=== PATIENT | male | born 1995 | race Caucasian/White ===

== ENCOUNTER 2017-10-23 12:43 | Emergency (ER) | payer OTHER ==
[2017-10-23 12:50] VITALS: BP 113/74; PULSE 101; RESP 18; TEMP 97.8
[2017-10-23 13:16] LABS: Appearance,Urine Clear (Clear); Bilirubin,Urine Negative (Negative); Blood,Urine Negative (Negative); Color,Urine Yellow; Glucose,Urine (UA) Negative (Negative); Ketones,Urine Negative (Negative); Leukocyte Esterase,Urine Negative (Negative); Nitrite,Urine Negative (Negative); Protein,Urine Trace (Negative); Specific Gravity,Urine 1.026 (1.001-1.035); Urobilinogen,Urine <2.0 mg/dL (<2.0)
[2017-10-23] MEDS ORDERED: PANTOPRAZOLE 40 MG/10 ML VIAL IVP STA (13:23)
--- NOTE | 2017-10-23 13:41 | ED ---
General Adult HPI - General Chief complaint: Abdominal Pain Stated complaint: Abd Pain Time Seen by Provider: 10/23/17 13:03 Source: patient, RN notes reviewed Mode of arrival: ambulatory Limitations: no limitations - History of Present Illness Initial comments: 22-year-old male presenting for evaluation of epigastric abdominal pain. Pain is been present for the past several weeks, worse with eating. Patient does have remote history of peptic ulcer disease. He was previously taking proton pump inhibitor, however he's been out of this medication for the past several weeks. Patient has no other chronic medical problems. No vomiting or diarrhea. No fever or chills. No chest pain or shortness of breath. - Related Data Home Medications Medication Instructions Recorded Confirmed Ranitidine HCl [Zantac] 150 mg PO DAILY PRN 10/23/17 10/23/17 Previous Rx's Medication Instructions Recorded Omeprazole [PriLOSEC] 20 mg PO AC-BID #60 cap 10/23/17 Allergies Allergy/AdvReac Type Severity Reaction Status Date / Time No Known Allergies Allergy Verified 10/23/17 12:50 Review of Systems ROS Statement: Those systems with pertinent positive or pertinent negative responses have been documented in the HPI. ROS Other: All systems not noted in ROS Statement are negative. Past Medical History Additional Past Medical History / Comment(s): ulcerative colitis History of Any Multi-Drug Resistant Organisms: None Reported Past Surgical History: No Surgical Hx Reported Past Psychological History: Bipolar, Depression, Schizophrenia Smoking Status: Current every day smoker Past Alcohol Use History: Occasional Past Drug Use History: Cocaine, Marijuana General Exam Limitations: no limitations General appearance: alert, in no apparent distress Head exam: Present: atraumatic, normocephalic Eye exam: Present: normal appearance, PERRL ENT exam: Present: normal exam Neck exam: Present: normal inspection. Absent: tenderness, meningismus Respiratory exam: Present: normal lung sounds bilaterally. Absent: respiratory distress Cardiovascular Exam: Present: regular rate, normal rhythm GI/Abdominal exam: Present: soft, tenderness (Mild epigastric tenderness). Absent: distended, guarding, rebound Extremities exam: Present: normal inspection, full ROM Back exam: Present: normal inspection, full ROM Neurological exam: Present: alert, oriented X3 Psychiatric exam: Present: normal affect, normal mood Skin exam: Present: warm, dry, intact Course Vital Signs 10/23/17 12:47 Temperature 97.8 F Pulse Rate 101 H Respiratory 18 Rate Blood Pressure 113/74 O2 Sat by Pulse 98 Oximetry Medical Decision Making - Medical Decision Making 22-year-old male presenting for epigastric pain, history of peptic ulcer disease. Patient has to leave unexpectedly, he signs out AGAINST MEDICAL ADVICE. He is prescribed proton pump inhibitor. No imaging or laboratory studies obtained. - Lab Data Lab Results 10/23/17 Range/Units 12:46 Urine Color Yellow Urine Appearance Clear (Clear) Urine pH 6.0 (5.0-8.0) Ur Specific [place] 1.026 (1.001-1.035) Urine Protein Trace H (Negative) Urine Glucose (UA) Negative (Negative) Urine Ketones Negative (Negative) Urine Blood Negative (Negative) Urine Nitrite Negative (Negative) Urine Bilirubin Negative (Negative) Urine Urobilinogen <2.0 (<2.0) mg/dL Ur Leukocyte Esterase Negative (Negative) Disposition Clinical Impression: Abdominal pain Disposition: Left Against Medical Advice Condition: Fair Prescriptions: Omeprazole [PriLOSEC] 20 mg PO AC-BID #60 cap Is patient prescribed a controlled substance at d/c from ED?: No Referrals: None,Stated [Primary Care Provider] - 1-2 days Tanner Naqiv MD [STAFF PHYSICIAN] - 1-2 days Time of Disposition: 13:40
== END 2017-10-23 13:45 | disposition left against medical advice (07) ==
LOC: EC 12:43
DX: R10.13 Epigastric pain (principal); F17.200 Nicotine dependence, unspecified, uncomplicated; Z53.29 Procedure and treatment not carried out because of patient's decision for other reasons; Z87.11 Personal history of peptic ulcer disease
CPT/HCPCS: 81003; 99283

== ENCOUNTER 2017-12-01 10:58 | Emergency (ER) | payer OTHER ==
[2017-12-01] MEDS ORDERED: SODIUM CHLORIDE 0.9% 1,000 ML IV STA (11:05)
[2017-12-01] MEDS ORDERED: PANTOPRAZOLE 40 MG/10 ML VIAL IVP STA (11:05)
[2017-12-01] MEDS ORDERED: MAG HYDROX/AL HYDROX/SIMETH 30 ML, HYOSCYAMINE ELIXIR 10 ML, CIMETIDINE HCL 300 MG PO STA ×3 (11:09)
--- NOTE | 2017-12-01 11:13 | ED ---
Abdominal Pain HPI - General Chief Complaint: Abdominal Pain Stated Complaint: abdominal pain Time Seen by Provider: 12/01/17 11:04 Source: patient, RN notes reviewed Mode of arrival: ambulatory Limitations: no limitations - History of Present Illness Initial Comments: 22-year-old male presents emergency Department chief complaint abdominal pain. Patient's been having ongoing abdominal pain last few weeks. Patient states he can't emergency department recently but states that [place] and was given a prescription for [id number] antacids. Patient states he has been taking them almost every day. Patient states that he has dark stools. Patient complains of epigastric pain. Patient states that he has been diagnosed with peptic ulcer disease and ulcerative colitis. Patient states she' s never had an EGD or colonoscopy. Patient states that he has cut out some fluids out of his diet but has not helped. He denies any excessive caffeine intake. Patient denies any chest pain, shortness breath, headache, dizziness, fever or chills. - Related Data Home Medications Medication Instructions Recorded Confirmed Ranitidine HCl [Zantac] 150 mg PO DAILY PRN 10/23/17 10/23/17 Previous Rx's Medication Instructions Recorded Omeprazole [PriLOSEC] 20 mg PO AC-BID #60 cap 10/23/17 Dicyclomine [Bentyl] 20 mg PO TID #30 tablet 12/01/17 Pantoprazole [Protonix] 40 mg PO DAILY #30 tablet. 12/01/17 Sucralfate [Carafate] 1 gm PO BID #30 tablet 12/01/17 Allergies Allergy/AdvReac Type Severity Reaction Status Date / Time No Known Allergies Allergy Verified 12/01/17 11:03 Review of Systems ROS Statement: Those systems with pertinent positive or pertinent negative responses have been documented in the HPI. ROS Other: All systems not noted in ROS Statement are negative. Past Medical History Additional Past Medical History / Comment(s): ulcerative colitis History of Any Multi-Drug Resistant Organisms: None Reported Past Surgical History: No Surgical Hx Reported Past Psychological History: Bipolar, Depression, Schizophrenia Smoking Status: Current every day smoker Past Alcohol Use History: Occasional Past Drug Use History: Cocaine, Marijuana General Exam Limitations: no limitations General appearance: alert, in no apparent distress Head exam: Present: atraumatic, normocephalic, normal inspection Eye exam: Present: normal appearance, PERRL, EOMI. Absent: scleral icterus, conjunctival injection, periorbital swelling ENT exam: Present: normal oropharynx, mucous membranes moist, TM's normal bilaterally, normal external ear exam Neck exam: Present: normal inspection, full ROM. Absent: tenderness, meningismus, lymphadenopathy Respiratory exam: Present: normal lung sounds bilaterally. Absent: respiratory distress, wheezes, rales, rhonchi, stridor Cardiovascular Exam: Present: regular rate, normal rhythm, normal heart sounds. Absent: systolic murmur, diastolic murmur, rubs, gallop, clicks GI/Abdominal exam: Present: soft, tenderness (Mild epigastric and upper abdominal tenderness), normal bowel sounds. Absent: distended, guarding, rebound, rigid Back exam: Absent: CVA tenderness (R), CVA tenderness (L) Psychiatric exam: Present: normal affect, normal mood Skin exam: Present: warm, dry, intact, normal color. Absent: rash Course Vital Signs 12/01/17 11:02 Temperature 98.1 F Pulse Rate 74 Respiratory 16 Rate Blood Pressure 135/71 O2 Sat by Pulse 99 Oximetry Medical Decision Making - Medical Decision Making 22-year-old male presented for ongoing abdominal pain, cramping. Patient has normal abnormal CT CT only showed possible evidence of mesenteric adenitis. Patient has no right lower quadrant tenderness to sports acute appendicitis. Patient will be started on Protonix, Carafate and Bentyl. Patient will be advised to follow-up with on-call for EGD and colonoscopy. Patient has normal hemoglobin and is stable for discharge. - Lab Data Result diagrams: 12/01/17 11:15 12/01/17 11:15 Lab Results 12/01/17 12/01/17 12/01/17 Range/Units 11:15 11:15 11:22 WBC 6.6 (3.8-10.6) k/uL RBC 5.13 (4.30-5.90) m/uL Hgb 15.6 (13.0-17.5) gm/dL Hct 45.0 (39.0-53.0) % MCV 87.7 (80.0-100.0) fL MCH 30.4 (25.0-35.0) pg MCHC 34.6 (31.0-37.0) g/dL RDW 12.3 (11.5-15.5) % Plt Count 190 (150-450) k/uL Neutrophils % 56 % Lymphocytes % 33 % Monocytes % 6 % Eosinophils % 2 % Basophils % 1 % Neutrophils # 3.7 (1.3-7.7) k/uL Lymphocytes # 2.2 (1.0-4.8) k/uL Monocytes # 0.4 (0-1.0) k/uL Eosinophils # 0.2 (0-0.7) k/uL Basophils # 0.0 (0-0.2) k/uL Sodium 140 (137-145) mmol/L Potassium 4.2 (3.5-5.1) mmol/L Chloride 109 H (98-107) mmol/L Carbon Dioxide 20 L (22-30) mmol/L Anion Gap 11 mmol/L BUN 19 (9-20) mg/dL Creatinine 0.80 (0.66-1.25) mg/dL Est GFR (CKD-EPI)AfAm >90 (>60 ml/min/1.73 sqM) Est GFR (CKD-EPI)NonAf >90 (>60 ml/min/1.73 sqM) Glucose 86 (74-99) mg/dL Calcium 9.6 (8.4-10.2) mg/dL Total Bilirubin 1.2 (0.2-1.3) mg/dL AST 27 (17-59) U/L ALT 32 (21-72) U/L Alkaline Phosphatase 71 (38-126) U/L C-Reactive Protein 6.4 (<10.0) mg/L Total Protein 7.7 (6.3-8.2) g/dL Albumin 4.7 (3.5-5.0) g/dL Amylase 69 (30-110) U/L Lipase 104 (23-300) U/L Urine Color Yellow Urine Appearance Clear (Clear) Urine pH 5.5 (5.0-8.0) Ur Specific [place] 1.028 (1.001-1.035) Urine Protein Trace H (Negative) Urine Glucose (UA) Negative (Negative) Urine Ketones Trace H (Negative) Urine Blood Negative (Negative) Urine Nitrite Negative (Negative) Urine Bilirubin Negative (Negative) Urine Urobilinogen <2.0 (<2.0) mg/dL Ur Leukocyte Esterase Negative (Negative) Disposition Clinical Impression: Abdominal pain, Peptic ulcer disease Disposition: HOME SELF-CARE Condition: Stable Instructions: Abdominal Pain (ED), Peptic Ulcer (ED) Additional Instructions: Please return to the Emergency Department if symptoms worsen or any other concerns. Prescriptions: Dicyclomine [Bentyl] 20 mg PO TID #30 tablet Pantoprazole [Protonix] 40 mg PO DAILY #30 tablet. Sucralfate [Carafate] 1 gm PO BID #30 tablet Is patient prescribed a controlled substance at d/c from ED?: No Referrals: Corwin Martinez MD [STAFF PHYSICIAN] - 1-2 days Time of Disposition: 12:01
[2017-12-01 11:30] LABS: Appearance,Urine Clear (Clear); Bilirubin,Urine Negative (Negative); Blood,Urine Negative (Negative); Color,Urine Yellow; Glucose,Urine (UA) Negative (Negative); Ketones,Urine Trace (Negative); Leukocyte Esterase,Urine Negative (Negative); Nitrite,Urine Negative (Negative); PH, Urine 5.5 (5.0-8.0); Protein,Urine Trace (Negative); Specific Gravity,Urine 1.028 (1.001-1.035); Urobilinogen,Urine <2.0 mg/dL (<2.0)
[2017-12-01 11:31] LABS: Basophils % (A) 1 %; Eosinophils # (A) 0.2 k/uL (0-0.7); Eosinophils % (A) 2 %; HGB 15.6 gm/dL (13.0-17.5); Lymphocytes # (A) 2.2 k/uL (1.0-4.8); Lymphocytes % (A) 33 %; MCH 30.4 pg (25.0-35.0); MCHC 34.6 g/dL (31.0-37.0); MCV 87.7 fL (80.0-100.0); Mean Platelet Volume 7.1; Monocytes # (A) 0.4 k/uL (0-1.0); Monocytes % (A) 6 %; Neutrophils # (A) 3.7 k/uL (1.3-7.7); Neutrophils % (A) 56 %; Platelet Count 190 k/uL (150-450); RBC 5.13 m/uL (4.30-5.90); RDW 12.3 % (11.5-15.5); WBC 6.6 k/uL (3.8-10.6)
[2017-12-01 11:49] LABS: ALT 32 U/L (21-72); AST 27 U/L (17-59); Albumin 4.7 g/dL (3.5-5.0); Alkaline Phosphatase 71 U/L (38-126); Amylase 69 U/L (30-110); Anion Gap 11 mmol/L; Blood Urea Nitrogen 19 mg/dL (9-20); C Reactive Protein 6.4 mg/L (<10.0); Calcium 9.6 mg/dL (8.4-10.2); Carbon Dioxide 20 mmol/L (22-30); Chloride 109 mmol/L (98-107); Glucose 86 mg/dL (74-99); Lipase 104 U/L (23-300); Potassium 4.2 mmol/L (3.5-5.1); Sodium 140 mmol/L (137-145); Total Bilirubin 1.2 mg/dL (0.2-1.3); Total Protein 7.7 g/dL (6.3-8.2)
--- NOTE | 2017-12-01 11:52 | CT ---
EXAMINATION TYPE: CT abdomen pelvis w con DATE OF EXAM: 12/01/2017 REFERENCE: NONE HISTORY: Pain HISTORY: abdominal pain CT DLP: 567 mGy Automated exposure control for dose reduction was used. TECHNIQUE: Helical acquisition through the abdomen and pelvis was obtained following the oral ingesti on of without Oral Contrast and following intravenous administration of 100mL mL of Isovue 300. The d zac was reformatted in axial, coronal and sagittal projections. FINDINGS: Visualized portions of the lungs are clear. There is no pleural or pericardial fluid. The heart is not enlarged. Within the abdomen, the liver, spleen and gallbladder are normal. Both adrenal glands are normal. Both kidneys demonstrate function and appear morphologically normal. The pancreas is unremarkable. There is no significant retroperitoneal, iliac or inguinal adenopathy. The bladder is not distended. There is no significant diverticular change and there is no radiographic evidence of diverticulitis. The appendix is not visualized with certainty. There is some right lower quadrant adenopathy which is nonspecific. I could not exclude some mesenter ic adenitis. Small bowel loops are of normal caliber. There is no free fluid and no free air. No bony lesion is seen. IMPRESSION: 1. NONVISUALIZATION OF THE APPENDIX. 2. FINDINGS SUGGESTIVE OF MESENTERIC ADENITIS. PLEASE CORRELATE CLINICALLY.
[2017-12-01 12:28] VITALS: BP 133/64; PULSE 71; RESP 17; TEMP 98.6
== END 2017-12-01 12:28 | disposition home or self-care (01) ==
LOC: EC 10:58
DX: K27.9 Peptic ulcer, site unspecified, unspecified as acute or chronic, without hemorrhage or perforation (principal); F17.200 Nicotine dependence, unspecified, uncomplicated
CPT/HCPCS: 99284; 36415; 80053; 82150; 83690; 85025; 86140; 81003; 74177; 96374; 96361; C9113

== ENCOUNTER 2017-12-25 12:27 | Emergency (ER) | payer OTHER ==
[2017-12-25 13:11] VITALS: BP 117/60; PULSE 69; RESP 20; TEMP 98.3
--- NOTE | 2017-12-25 13:22 | ED ---
Recheck HPI - General Chief Complaint: Recheck/Abnormal Lab/Rx Stated Complaint: Fever, Poss Hand, Foot, & Mouth Time Seen by Provider: 12/25/17 13:13 Source: patient, RN notes reviewed, old records reviewed Mode of arrival: ambulatory Limitations: no limitations - History of Present Illness Initial Comments: Patient is a 22-year-old male presents emergency Department stay with chief complaint of rash over his hands feet and mouth. Patient reports that his daughter was diagnosed with vduw-vjou-ucj-mouth disease 2 days ago. He reports a low-grade temperature yesterday. He states that he's had small blisterlike lesions over his mouth in the corner of his lip. Patient states he has a few lesions on his right hand and couple on his foot bottom and his buttocks. Patient reports that he needs a note for work to take care of his child as well as a take care of himself until he is not contagious. - Related Data Previous Rx's Medication Instructions Recorded Omeprazole [PriLOSEC] 20 mg PO AC-BID #60 cap 10/23/17 Allergies Allergy/AdvReac Type Severity Reaction Status Date / Time No Known Allergies Allergy Verified 12/25/17 13:43 Review of Systems ROS Statement: Those systems with pertinent positive or pertinent negative responses have been documented in the HPI. ROS Other: All systems not noted in ROS Statement are negative. Past Medical History Additional Past Medical History / Comment(s): ulcerative colitis History of Any Multi-Drug Resistant Organisms: None Reported Past Surgical History: No Surgical Hx Reported Past Psychological History: Bipolar, Depression, Schizophrenia Smoking Status: Current every day smoker Past Alcohol Use History: Occasional Past Drug Use History: Cocaine, Marijuana General Exam - General Exam Comments Initial Comments: Well-appearing 22-year-old male. No acute distress. Limitations: no limitations General appearance: alert, in no apparent distress Head exam: Present: atraumatic, normocephalic, normal inspection Eye exam: Present: normal appearance, PERRL, EOMI. Absent: scleral icterus, conjunctival injection, periorbital swelling ENT exam: Present: normal exam, mucous membranes moist, other (Sporadic 2-3 mm blisters over the oral mucosa and outside of his right cheek. He has a similar blister like lesion over his right hands and feet.) Neck exam: Present: normal inspection. Absent: tenderness, meningismus, lymphadenopathy Respiratory exam: Present: normal lung sounds bilaterally. Absent: respiratory distress, wheezes, rales, rhonchi, stridor Cardiovascular Exam: Present: regular rate, normal rhythm, normal heart sounds. Absent: systolic murmur, diastolic murmur, rubs, gallop, clicks GI/Abdominal exam: Present: soft, normal bowel sounds. Absent: distended, tenderness, guarding, rebound, rigid Back exam: Present: normal inspection Neurological exam: Present: alert, oriented X3, CN II-XII intact Psychiatric exam: Present: normal affect, normal mood Skin exam: Present: warm, dry, intact, normal color. Absent: rash Course Vital Signs 12/25/17 13:08 Temperature 98.3 F Pulse Rate 69 Respiratory 20 Rate Blood Pressure 117/60 O2 Sat by Pulse 99 Oximetry Medical Decision Making - Medical Decision Making This is a 22-year-old male presents emergency Department chief fevers, blisterlike lesions over his hands, feet and mouth. His daughter was diagnosed with gpos-hacg-xxl-mouth virus. He reports he did have some fevers yesterday and was given Motrin Tylenol. Patient reports he needs a work note until he is not contagious. Patient has multiple sporadic blisterlike lesions or the oromucosa. Discussed the importance of remaining hydrated this is a viral illness. Discussed that it will be self-limiting. Patient is given a note for work for the next few days. Discussed alternating Motrin Tylenol. Discussed he can also expect to have significant joint pains. Patient states that she will comply. Return parameters were discussed. Disposition Clinical Impression: Hand, foot and mouth disease Disposition: HOME SELF-CARE Condition: Good Instructions: Viral [place]hem (ED) Additional Instructions: Patient advised to ensure having Motrin Tylenol for fevers and pain. Drink Plenty of fluids. Return to the emergency department if any alarming signs or symptoms occur. Is patient prescribed a controlled substance at d/c from ED?: No Referrals: None,Stated [Primary Care Provider] - 1-2 days
== END 2017-12-25 13:40 | disposition home or self-care (01) ==
LOC: EC 12:27
DX: B08.4 Enteroviral vesicular stomatitis with exanthem (principal); F17.200 Nicotine dependence, unspecified, uncomplicated
CPT/HCPCS: 99283

== ENCOUNTER 2018-01-10 13:00 | Emergency (ER) | payer OTHER ==
--- NOTE | 2018-01-10 13:43 | ED ---
ENT HPI - General Chief complaint: ENT Stated complaint: Sore throat Time Seen by Provider: 01/10/18 13:13 Source: patient Mode of arrival: ambulatory Limitations: no limitations - History of Present Illness Initial comments: 22-year-old male with PMH of UC who presents today for chief complaint of sore throat x1 day. Pt states that he woke up this morning with sore throat and body aches, he states he looked in the mirror an noticed redness of the throat and uvula. Pt Denies any swelling of the neck, difficulty breathing or swallowing. Pt states that he did have chills, but did not take his temperature. Pt was concerned about strep throat and presented to the emergency department for evaluation. Patient denies any recent fever, shortness of breath, chest pain, back pain, abdominal pain, nausea or vomiting, numbness or tingling, dysuria or hematuria, constipation or diarrhea, headaches or visual changes, or any other complaints. - Related Data Previous Rx's Medication Instructions Recorded Omeprazole [PriLOSEC] 20 mg PO AC-BID #60 cap 10/23/17 Allergies Allergy/AdvReac Type Severity Reaction Status Date / Time No Known Allergies Allergy Verified 01/10/18 13:14 Review of Systems ROS Statement: Those systems with pertinent positive or pertinent negative responses have been documented in the HPI. ROS Other: All systems not noted in ROS Statement are negative. Constitutional: Reports: chills. Denies: fever, night sweats ENT: Reports: throat pain Cardiovascular: Denies: chest pain Endocrine: Denies: as per HPI Gastrointestinal: Denies: abdominal pain, nausea, vomiting, diarrhea, constipation Genitourinary: Denies: urgency, dysuria Musculoskeletal: Denies: back pain, joint swelling Skin: Denies: rash, lesions Neurological: Denies: headache, weakness, numbness, paresthesias, confusion Past Medical History Additional Past Medical History / Comment(s): ulcerative colitis History of Any Multi-Drug Resistant Organisms: None Reported Past Surgical History: No Surgical Hx Reported Past Psychological History: Bipolar, Depression, Schizophrenia Smoking Status: Current every day smoker Past Alcohol Use History: Occasional Past Drug Use History: Cocaine, Marijuana General Exam - General Exam Comments Initial Comments: General: The patient is awake and alert, in no distress, and does not appear acutely ill. No signs of respiratory distress, drooling or stridor. Pt appears well, nontoxic. Eye: Pupils are equal, round and reactive to light, extra-ocular movements are intact. No nystagmus. There is normal conjunctiva bilaterally. No signs of icterus. Ears, nose, mouth and throat: There are moist mucous membranes and no oral lesions. Oropharyngx is erythematous, there is mild equal bilateral tonsillar enlargement, no tonsilar exudates. Uvula is mildly erythematous and swollen but mild, raising with phonation. Neck: The neck is supple, there is no tenderness or JVD. No anterior cervical lymphadenopathy. Cardiovascular: There is a regular rate and rhythm. No murmur, rub or gallop is appreciated. Respiratory: Lungs are clear to auscultation, respirations are non-labored, breath sounds are equal. No wheezes, stridor, rales, or rhonchi. Gastrointestinal: Soft, non-distended, non-tender abdomen without masses or organomegaly noted. There is no rebound or guarding present. No CVA tenderness. Bowel sounds are unremarkable. No splenomegaly. Musculoskeletal: Normal ROM, no tenderness. Strength 5/5. Sensation intact. Radial pulses equal bilaterally 2+. Neurological: A&O x 3. CN II-XII intact, There are no obvious motor or sensory deficits. Coordination appears grossly intact. Speech is normal. Skin: Skin is warm and dry and no rashes or lesions are noted. Psychiatric: Cooperative, appropriate mood & affect, normal judgment. Limitations: no limitations Course Vital Signs 01/10/18 01/10/18 13:12 14:35 Temperature 98.4 F 97.8 F Pulse Rate 98 78 Respiratory 18 16 Rate Blood Pressure 131/76 129/70 O2 Sat by Pulse 99 98 Oximetry Medical Decision Making - Medical Decision Making 22 y with cc of sore throat. Afebrile upon arrival. PE revealed signs concerning pharyngitis with uvulitis. No evidence of paratonsillar abscess. Pt appeared well no signs of respiratory distress. No hx or findings concerning for anaphylaxis as cause of uvulitis. Rapid strep (-). Pt given 2mg decadron. Given PE findings with (-) strep testing I feel this is most likely viral pharngitis with uvulitis. Symptomatic care was discussed with pt as well as f/u within 1-2 day> Pt agreed with plan. Case discussed in detail with Dr. Ragsdale who agreed with impression and plan. Return parameters were discussed in detail patient, and pt d/c in stable condition. - Lab Data Lab Results 01/10/18 Range/Units 13:24 Group A Strep Rapid Negative (Negative) Disposition Clinical Impression: Pharyngitis, Uvulitis Disposition: HOME SELF-CARE Condition: Good Instructions: Pharyngitis (ED) Is patient prescribed a controlled substance at d/c from ED?: No Referrals: None,Stated [Primary Care Provider] - 1-2 days [facility] Romaine larsen [NON-STAFF] - 1-2 days Time of Disposition: 14:25
[2018-01-10] MEDS ORDERED: DEXAMETHASONE 4 MG TAB PO STA (13:44)
[2018-01-10 14:36] VITALS: BP 129/70; PULSE 78; RESP 16; TEMP 97.8
== END 2018-01-10 14:35 | disposition home or self-care (01) ==
LOC: EC 13:00
DX: J02.9 Acute pharyngitis, unspecified (principal); K12.2 Cellulitis and abscess of mouth; F17.200 Nicotine dependence, unspecified, uncomplicated
CPT/HCPCS: 87081; 87430; 99283; J8540

== ENCOUNTER 2019-12-22 16:35 | Emergency (ER) | payer OTHER ==
[2019-12-22 16:39] VITALS: RESP 18; TEMP 98.5
--- NOTE | 2019-12-22 16:48 | ED ---
GI Bleed HPI - General Chief complaint: GI Bleed Stated complaint: GI bleed Time Seen by Provider: 12/22/19 16:40 Source: patient Mode of arrival: ambulatory Limitations: no limitations - History of Present Illness Initial comments: Patient is a 24-year-old male presenting to emergency Department with chief complaint of blood in the stool. Patient reports he said similar episodes to this for the past 8 years. Patient states the physicians were suspecting ulcerative colitis to be the cause of his symptoms and he was advised to follow- up with a GI specialist to obtain upper and lower GI scope and he never did. Patient states she was too afraid of the diagnosis. Patient states his previous rectal bleeds were secondary to alcohol abuse. States he has not been draining for the past one year because he was in assisted. She reports most recent episode started yesterday with bright red bleeding. States he does have loose stool but not profuse diarrhea. Denies any urinary symptoms. Denies nausea or vomiting but does report lower abdominal pain most localized to the left lower quadrant region. - Related Data Previous Rx's Medication Instructions Recorded Omeprazole [PriLOSEC] 20 mg PO AC-BID #60 cap 10/23/17 Allergies Allergy/AdvReac Type Severity Reaction Status Date / Time No Known Allergies Allergy Verified 12/22/19 16:39 Review of Systems ROS Statement: Those systems with pertinent positive or pertinent negative responses have been documented in the HPI. ROS Other: All systems not noted in ROS Statement are negative. Past Medical History Additional Past Medical History / Comment(s): ulcerative colitis History of Any Multi-Drug Resistant Organisms: None Reported Past Surgical History: No Surgical Hx Reported Past Psychological History: Bipolar, Depression, Schizophrenia Smoking Status: Current every day smoker Past Alcohol Use History: Occasional Past Drug Use History: Cocaine, Marijuana General Exam Limitations: no limitations General appearance: alert, in no apparent distress Head exam: Present: atraumatic, normocephalic, normal inspection Eye exam: Present: normal appearance, PERRL, EOMI Pupils: Present: normal accommodation ENT exam: Present: normal exam, normal oropharynx, mucous membranes moist Neck exam: Present: normal inspection, full ROM. Absent: tenderness Respiratory exam: Present: normal lung sounds bilaterally. Absent: respiratory distress, wheezes, rales Cardiovascular Exam: Present: regular rate, normal rhythm, normal heart sounds GI/Abdominal exam: Present: soft, tenderness (Left lower quadrant). Absent: distended, guarding, rebound Rectal exam: Present: normal rectal tone. Absent: normal inspection (Some residual hematochezia around the anus. No signs of fibroids.), hemorrhoids Extremities exam: Present: normal inspection, full ROM, normal capillary refill. Absent: tenderness Back exam: Present: normal inspection, full ROM. Absent: tenderness, CVA tenderness (R), CVA tenderness (L) Neurological exam: Present: alert, oriented X3 Psychiatric exam: Present: normal affect, normal mood Skin exam: Present: warm, dry, intact, normal color Course Vital Signs 12/22/19 12/22/19 12/22/19 16:36 17:33 18:08 Temperature 98.5 F Pulse Rate 108 H 115 H 98 Respiratory 18 18 18 Rate Blood Pressure 128/85 134/85 128/87 O2 Sat by Pulse 98 98 98 Oximetry Medical Decision Making - Medical Decision Making Patient is 24-year-old male presenting to emergency Department with a chief complaint of rectal bleed. On exam patient does have some residual hematochezia on the anus. Abdominal exam reveals some left lower quadrant abdominal pain. He does have loose stools with the hematochezia. There is a concern for ulcerative colitis. Patient has had previous episodes like this while he was abusing alcohol. Patient was given fluids and analgesia. Patient was also given 40 mg of Protonix. CBC CMP and UA are unremarkable. EKG shows sinus tachycardia. He does any chest pain or shortness of breath or back pain. Advised the patient to follow with a GI specialist and have an upper or lower GI scope. He was also discharged with omeprazole. Strict return parameters were thoroughly discussed with patient is under standing and agreeable. Case discussed with physician. - Lab Data Result diagrams: 12/22/19 17:22 12/22/19 17:22 Lab Results 12/22/19 12/22/19 12/22/19 Range/Units 17:22 17: 17:22 WBC 7.4 (3.8-10.6) k/uL RBC 5.22 (4.30-5.90) m/uL Hgb 15.7 (13.0-17.5) gm/dL Hct 47.2 (39.0-53.0) % MCV 90.5 (80.0-100.0) fL MCH 30.2 (25.0-35.0) pg MCHC 33.3 (31.0-37.0) g/dL RDW 12.1 (11.5-15.5) % Plt Count 209 (150-450) k/uL Neutrophils % 61 % Lymphocytes % 28 % Monocytes % 5 % Eosinophils % 4 % Basophils % 1 % Neutrophils # 4.5 (1.3-7.7) k/uL Lymphocytes # 2.1 (1.0-4.8) k/uL Monocytes # 0.3 (0-1.0) k/uL Eosinophils # 0.3 (0-0.7) k/uL Basophils # 0.0 (0-0.2) k/uL APTT 23.4 (22.0-30.0) sec Sodium 138 (137-145) mmol/L Potassium 4.0 (3.5-5.1) mmol/L Chloride 107 (98-107) mmol/L Carbon Dioxide 26 (22-30) mmol/L Anion Gap 5 mmol/L BUN 13 (9-20) mg/dL Creatinine 0.79 (0.66-1.25) mg/dL Est GFR (CKD-EPI)AfAm >90 (>60 ml/min/1.73 sqM) Est GFR (CKD-EPI)NonAf >90 (>60 ml/min/1.73 sqM) Glucose 94 (74-99) mg/dL Calcium 9.1 (8.4-10.2) mg/dL Total Bilirubin 1.0 (0.2-1.3) mg/dL AST 26 (17-59) U/L ALT 18 (4-49) U/L Alkaline Phosphatase 59 (38-126) U/L Troponin I (0.000-0.034) ng/mL Total Protein 6.8 (6.3-8.2) g/dL Albumin 4.1 (3.5-5.0) g/dL Urine Color Urine Appearance (Clear) Urine pH (5.0-8.0) Ur Specific Canvas (1.001-1.035) Urine Protein (Negative) Urine Glucose (UA) (Negative) Urine Ketones (Negative) Urine Blood (Negative) Urine Nitrite (Negative) Urine Bilirubin (Negative) Urine Urobilinogen (<2.0) mg/dL Ur Leukocyte Esterase (Negative) 12/22/19 12/22/19 Range/Units 17:22 17:22 WBC (3.8-10.6) k/uL RBC (4.30-5.90) m/uL Hgb (13.0-17.5) gm/dL Hct (39.0-53.0) % MCV (80.0-100.0) fL MCH (25.0-35.0) pg MCHC (31.0-37.0) g/dL RDW (11.5-15.5) % Plt Count (150-450) k/uL Neutrophils % % Lymphocytes % % Monocytes % % Eosinophils % % Basophils % % Neutrophils # (1.3-7.7) k/uL Lymphocytes # (1.0-4.8) k/uL Monocytes # (0-1.0) k/uL Eosinophils # (0-0.7) k/uL Basophils # (0-0.2) k/uL APTT (22.0-30.0) sec Sodium (137-145) mmol/L Potassium (3.5-5.1) mmol/L Chloride (98-107) mmol/L Carbon Dioxide (22-30) mmol/L Anion Gap mmol/L BUN (9-20) mg/dL Creatinine (0.66-1.25) mg/dL Est GFR (CKD-EPI)AfAm (>60 ml/min/1.73 sqM) Est GFR (CKD-EPI)NonAf (>60 ml/min/1.73 sqM) Glucose (74-99) mg/dL Calcium (8.4-10.2) mg/dL Total Bilirubin (0.2-1.3) mg/dL AST (17-59) U/L ALT (4-49) U/L Alkaline Phosphatase (38-126) U/L Troponin I <0.012 (0.000-0.034) ng/mL Total Protein (6.3-8.2) g/dL Albumin (3.5-5.0) g/dL Urine Color Yellow Urine Appearance Clear (Clear) Urine pH 6.0 (5.0-8.0) Ur Specific Canvas 1.031 (1.001-1.035) Urine Protein Trace H (Negative) Urine Glucose (UA) Negative (Negative) Urine Ketones Negative (Negative) Urine Blood Negative (Negative) Urine Nitrite Negative (Negative) Urine Bilirubin Negative (Negative) Urine Urobilinogen <2.0 (<2.0) mg/dL Ur Leukocyte Esterase Negative (Negative) - EKG Data EKG Comments: Sinus tachycardia. Ventricular rate 104, OR 136, QRS 96, QTc 444. Disposition Clinical Impression: Hematochezia, Abdominal pain Disposition: HOME SELF-CARE Condition: Stable Instructions (If sedation given, give patient instructions): Gastrointestinal Bleeding (ED), Ulcerative Colitis (ED) Additional Instructions: Follow with a GI specialist. Take prescribed medication as directed. Return to emergency department if symptoms worsen. Is patient prescribed a controlled substance at d/c from ED?: No Referrals: Katerin Meyers MD [REFERRING] - 1-2 days Rosy Ojeda MD [STAFF PHYSICIAN] - 1-2 days Time of Disposition: 18:28
[2019-12-22] MEDS ORDERED: SODIUM CHLORIDE 0.9% 1,000 ML IV STA (16:58)
[2019-12-22] MEDS ORDERED: PANTOPRAZOLE 40 MG/10 ML VIAL IVP STA (16:58)
[2019-12-22 17:34] LABS: Basophils % (A) 1 %; Eosinophils # (A) 0.3 k/uL (0-0.7); Eosinophils % (A) 4 %; HCT 47.2 % (39.0-53.0); HGB 15.7 gm/dL (13.0-17.5); Lymphocytes # (A) 2.1 k/uL (1.0-4.8); Lymphocytes % (A) 28 %; MCH 30.2 pg (25.0-35.0); MCHC 33.3 g/dL (31.0-37.0); MCV 90.5 fL (80.0-100.0); Mean Platelet Volume 7.8; Monocytes # (A) 0.3 k/uL (0-1.0); Monocytes % (A) 5 %; Neutrophils # (A) 4.5 k/uL (1.3-7.7); Neutrophils % (A) 61 %; Platelet Count 209 k/uL (150-450); RBC 5.22 m/uL (4.30-5.90); RDW 12.1 % (11.5-15.5); WBC 7.4 k/uL (3.8-10.6)
[2019-12-22 17:55] LABS: ALT 18 U/L (4-49); AST 26 U/L (17-59); African American GFR (CKD) >90 (>60 ml/min/1.73 sqM); Albumin 4.1 g/dL (3.5-5.0); Alkaline Phosphatase 59 U/L (38-126); Anion Gap 5 mmol/L; Blood Urea Nitrogen 13 mg/dL (9-20); Calcium 9.1 mg/dL (8.4-10.2); Carbon Dioxide 26 mmol/L (22-30); Chloride 107 mmol/L (98-107); Glucose 94 mg/dL (74-99); Non-African American GFR(CKD) >90 (>60 ml/min/1.73 sqM); Sodium 138 mmol/L (137-145); Total Protein 6.8 g/dL (6.3-8.2)
[2019-12-22 17:59] LABS: Appearance,Urine Clear (Clear); Bilirubin,Urine Negative (Negative); Blood,Urine Negative (Negative); Color,Urine Yellow; Glucose,Urine (UA) Negative (Negative); Ketones,Urine Negative (Negative); Leukocyte Esterase,Urine Negative (Negative); Nitrite,Urine Negative (Negative); Protein,Urine Trace (Negative); Specific Gravity,Urine 1.031 (1.001-1.035); Urobilinogen,Urine <2.0 mg/dL (<2.0)
[2019-12-22] MEDS ORDERED: MORPHINE SULFATE 4 MG/ML SYRINGE IVP STA (18:00)
[2019-12-22 18:09] VITALS: BP 128/87; PULSE 98
== END 2019-12-22 18:36 | disposition home or self-care (01) ==
LOC: EC 16:35
DX: K92.1 Melena (principal); R10.32 Left lower quadrant pain; R00.0 Tachycardia, unspecified; F17.200 Nicotine dependence, unspecified, uncomplicated
CPT/HCPCS: 36415; 93005; 86900; 86901; 80053; 84484; 85025; 85730; 86850; 81003; 99285; 96374; 96375; 96361; J2270; C9113

== ENCOUNTER 2019-12-24 00:24 | Observation (INO) | payer OTHER ==
--- NOTE | 2019-12-24 00:46 | ED ---
Recheck HPI - General Chief Complaint: GI Bleed Stated Complaint: Blood in stool, revisit Time Seen by Provider: 12/24/19 00:46 Source: patient, RN notes reviewed, old records reviewed Mode of arrival: ambulatory Limitations: no limitations - History of Present Illness Initial Comments: This is a 24-year-old male DF for evaluation patient Dese for evaluation regards to abdominal pain blood in the stool with history of colitis in our ER 2-3 days ago for similar complaints progressively worsening. No recent travel history or sick contacts, no fevers MD Complaint: other (Recheck for persistent GI bleeding) Returns Today for: persistent/worsening pain related to initial visit Symptoms Since Prior Visit: worsening pain Associated Symptoms: none, nausea, abdominal pain - Related Data Previous Rx's Medication Instructions Recorded Omeprazole [PriLOSEC] 20 mg PO AC-BID #60 cap 10/23/17 Allergies Allergy/AdvReac Type Severity Reaction Status Date / Time No Known Allergies Allergy Verified 12/24/19 00:42 Review of Systems ROS Statement: Those systems with pertinent positive or pertinent negative responses have been documented in the HPI. ROS Other: All systems not noted in ROS Statement are negative. Past Medical History Additional Past Medical History / Comment(s): ulcerative colitis History of Any Multi-Drug Resistant Organisms: None Reported Past Surgical History: No Surgical Hx Reported Past Psychological History: Bipolar, Depression, Schizophrenia Smoking Status: Current every day smoker Past Alcohol Use History: Occasional Past Drug Use History: Cocaine, Marijuana General Exam Limitations: no limitations General appearance: alert, in no apparent distress Head exam: Present: atraumatic, normocephalic, normal inspection Eye exam: Present: normal appearance, PERRL, EOMI. Absent: scleral icterus, conjunctival injection, periorbital swelling ENT exam: Present: normal exam, mucous membranes moist Neck exam: Present: normal inspection. Absent: tenderness, meningismus, lymphadenopathy Respiratory exam: Present: normal lung sounds bilaterally. Absent: respiratory distress, wheezes, rales, rhonchi, stridor Cardiovascular Exam: Present: normal rhythm, tachycardia, normal heart sounds. Absent: systolic murmur, diastolic murmur, rubs, gallop, clicks GI/Abdominal exam: Present: soft, normal bowel sounds. Absent: distended, tenderness, guarding, rebound, rigid Extremities exam: Present: normal inspection, full ROM, normal capillary refill. Absent: tenderness, pedal edema, joint swelling, calf tenderness Back exam: Present: normal inspection Neurological exam: Present: alert, oriented X3, CN II-XII intact Psychiatric exam: Present: normal affect, normal mood Skin exam: Present: warm, dry, intact, normal color. Absent: rash Course Vital Signs 12/24/19 00:39 Temperature 98.5 F Pulse Rate 119 H Respiratory 20 Rate Blood Pressure 136/90 O2 Sat by Pulse 100 Oximetry - Reevaluation(s) Reevaluation #1: 12/24/19 02:26 Medical record prior ER reviewed Reevaluation #2: 12/24/19 02:26 Patient reevaluated still with pain not feeling well Reevaluation #3: 12/24/19 02:26 Patient informed results and questions are answered Medical Decision Making - Medical Decision Making 24 male to the ER for persistent GI bleed as well as abdominal pain. Deenattshira for patient GI evaluation secondary to Crohn's colitis - Lab Data Result diagrams: 12/24/19 01:08 12/24/19 01:08 Lab Results 12/24/19 12/24/19 12/24/19 Range/Units 01:08 01:08 01:08 WBC 9.0 (3.8-10.6) k/uL RBC 5.00 (4.30-5.90) m/uL Hgb 15.1 (13.0-17.5) gm/dL Hct 45.5 (39.0-53.0) % MCV 91.0 (80.0-100.0) fL MCH 30.3 (25.0-35.0) pg MCHC 33.3 (31.0-37.0) g/dL RDW 12.1 (11.5-15.5) % Plt Count 215 (150-450) k/uL Neutrophils % 66 % Lymphocytes % 24 % Monocytes % 5 % Eosinophils % 3 % Basophils % 1 % Neutrophils # 6.0 (1.3-7.7) k/uL Lymphocytes # 2.1 (1.0-4.8) k/uL Monocytes # 0.4 (0-1.0) k/uL Eosinophils # 0.3 (0-0.7) k/uL Basophils # 0.1 (0-0.2) k/uL PT 10.6 (9.0-12.0) sec INR 1.0 (<1.2) APTT 24.3 (22.0-30.0) sec Sodium 138 (137-145) mmol/L Potassium 3.8 (3.5-5.1) mmol/L Chloride 107 (98-107) mmol/L Carbon Dioxide 25 (22-30) mmol/L Anion Gap 6 mmol/L BUN 9 (9-20) mg/dL Creatinine 0.77 (0.66-1.25) mg/dL Est GFR (CKD-EPI)AfAm >90 (>60 ml/min/1.73 sqM) Est GFR (CKD-EPI)NonAf >90 (>60 ml/min/1.73 sqM) Glucose 99 (74-99) mg/dL Plasma Lactic Acid Jose (0.7-2.0) mmol/L Calcium 9.3 (8.4-10.2) mg/dL Total Bilirubin 0.5 (0.2-1.3) mg/dL AST 21 (17-59) U/L ALT 16 (4-49) U/L Alkaline Phosphatase 59 (38-126) U/L Ammonia (<30) umol/L Troponin I (0.000-0.034) ng/mL Total Protein 6.9 (6.3-8.2) g/dL Albumin 4.3 (3.5-5.0) g/dL 12/24/19 12/24/19 Range/Units 01:08 01:08 WBC (3.8-10.6) k/uL RBC (4.30-5.90) m/uL Hgb (13.0-17.5) gm/dL Hct (39.0-53.0) % MCV (80.0-100.0) fL MCH (25.0-35.0) pg MCHC (31.0-37.0) g/dL RDW (11.5-15.5) % Plt Count (150-450) k/uL Neutrophils % % Lymphocytes % % Monocytes % % Eosinophils % % Basophils % % Neutrophils # (1.3-7.7) k/uL Lymphocytes # (1.0-4.8) k/uL Monocytes # (0-1.0) k/uL Eosinophils # (0-0.7) k/uL Basophils # (0-0.2) k/uL PT (9.0-12.0) sec INR (<1.2) APTT (22.0-30.0) sec Sodium (137-145) mmol/L Potassium (3.5-5.1) mmol/L Chloride (98-107) mmol/L Carbon Dioxide (22-30) mmol/L Anion Gap mmol/L BUN (9-20) mg/dL Creatinine (0.66-1.25) mg/dL Est GFR (CKD-EPI)AfAm (>60 ml/min/1.73 sqM) Est GFR (CKD-EPI)NonAf (>60 ml/min/1.73 sqM) Glucose (74-99) mg/dL Plasma Lactic Acid Jose 1.1 (0.7-2.0) mmol/L Calcium (8.4-10.2) mg/dL Total Bilirubin (0.2-1.3) mg/dL AST (17-59) U/L ALT (4-49) U/L Alkaline Phosphatase (38-126) U/L Ammonia 40 H (<30) umol/L Troponin I <0.012 (0.000-0.034) ng/mL Total Protein (6.3-8.2) g/dL Albumin (3.5-5.0) g/dL Disposition Clinical Impression: Abdominal pain, GI bleed Disposition: ADMITTED IP TO THIS [facility] Condition: Fair Is patient prescribed a controlled substance at d/c from ED?: No Referrals: Katerin Meyers MD [Primary Care Provider] - 1-2 days
[2019-12-24] MEDS ORDERED: ONDANSETRON 4 MG/2 ML VIAL IVP STA (00:59)
[2019-12-24] MEDS ORDERED: HYDROmorphone 0.5 MG/0.5 ML SYRINGE IVP STA (00:59)
[2019-12-24] MEDS ORDERED: PANTOPRAZOLE 40 MG/10 ML VIAL IVP STA (00:59)
[2019-12-24] MEDS ORDERED: SODIUM CHLORIDE 0.9% 1,000 ML IV STA (00:59)
[2019-12-24 01:30] LABS: Basophils # (A) 0.1 k/uL (0-0.2); Basophils % (A) 1 %; Eosinophils # (A) 0.3 k/uL (0-0.7); Eosinophils % (A) 3 %; HCT 45.5 % (39.0-53.0); HGB 15.1 gm/dL (13.0-17.5); Lymphocytes # (A) 2.1 k/uL (1.0-4.8); Lymphocytes % (A) 24 %; MCH 30.3 pg (25.0-35.0); MCHC 33.3 g/dL (31.0-37.0); Mean Platelet Volume 7.6; Monocytes # (A) 0.4 k/uL (0-1.0); Monocytes % (A) 5 %; Neutrophils % (A) 66 %; Platelet Count 215 k/uL (150-450); RDW 12.1 % (11.5-15.5)
[2019-12-24 01:34] LABS: ALT 16 U/L (4-49); AST 21 U/L (17-59); African American GFR (CKD) >90 (>60 ml/min/1.73 sqM); Albumin 4.3 g/dL (3.5-5.0); Alkaline Phosphatase 59 U/L (38-126); Anion Gap 6 mmol/L; Blood Urea Nitrogen 9 mg/dL (9-20); Calcium 9.3 mg/dL (8.4-10.2); Carbon Dioxide 25 mmol/L (22-30); Chloride 107 mmol/L (98-107); Glucose 99 mg/dL (74-99); Non-African American GFR(CKD) >90 (>60 ml/min/1.73 sqM); Potassium 3.8 mmol/L (3.5-5.1); Sodium 138 mmol/L (137-145); Total Bilirubin 0.5 mg/dL (0.2-1.3); Total Protein 6.9 g/dL (6.3-8.2)
[2019-12-24 01:35] LABS: Partial Thromboplastin Time 24.3 sec (22.0-30.0); Prothrombin Time 10.6 sec (9.0-12.0)
[2019-12-24 01:39] LABS: Lactic Acid, Venous 1.1 mmol/L (0.7-2.0)
[2019-12-24] MEDS ORDERED: SODIUM CHLORIDE 0.9% 1,000 ML IV ONE (02:23)
[2019-12-24] MEDS ORDERED: ONDANSETRON 4 MG/2 ML VIAL IVP PRN (02:23)
[2019-12-24 02:30] VITALS: RESP 16
[2019-12-24] MEDS: PANTOPRAZOLE 40 MG/10 ML VIAL IVP SCH (07:44)
[2019-12-24 08:53] LABS: Basophils # (A) 0.1 k/uL (0-0.2); Basophils % (A) 1 %; Eosinophils # (A) 0.3 k/uL (0-0.7); Eosinophils % (A) 4 %; HCT 41.5 % (39.0-53.0); HGB 13.8 gm/dL (13.0-17.5); Lymphocytes # (A) 2.6 k/uL (1.0-4.8); Lymphocytes % (A) 41 %; MCH 30.3 pg (25.0-35.0); MCHC 33.2 g/dL (31.0-37.0); MCV 91.3 fL (80.0-100.0); Mean Platelet Volume 7.4; Monocytes # (A) 0.4 k/uL (0-1.0); Monocytes % (A) 6 %; Neutrophils % (A) 46 %; Platelet Count 173 k/uL (150-450); RBC 4.55 m/uL (4.30-5.90); WBC 6.5 k/uL (3.8-10.6)
--- NOTE | 2019-12-24 13:44 | P.HPIM ---
History of Present Illness 24-year-old male came in with complaints of bright red blood per rectum going on for about 3 days about 3 episodes of blood in the stools every day. Patient had a rectal exam in ER and didn't find any hemorrhoids. Patient hemoglobin is fairly stable at this time patient had similar episodes when he was 11 years old patient denied any abdominal pain denied nausea vomiting fever chills patient didn't have any episodes of blood in the stools since admission. Review of Systems REVIEW OF SYSTEMS: CONSTITUTIONAL: No fever, no malaise, no fatigue. HEENT: No recent visual problems or hearing problems. Denied any sore throat. CARDIOVASCULAR: No chest pain, orthopnea, PND, no palpitations, no syncope. PULMONARY: No shortness of breath, no cough, no hemoptysis. GASTROINTESTINAL: As mentioned in HPI NEUROLOGICAL: No headaches, no weakness, no numbness. HEMATOLOGICAL: Denies any bleeding or petechiae. GENITOURINARY: Denies any burning micturition, frequency, or urgency. MUSCULOSKELETAL/RHEUMATOLOGICAL: Denies any joint pain, swelling, or any muscle pain. ENDOCRINE: Denies any polyuria or polydipsia. The rest of the 14-point review of systems is negative. Past Medical History Past Medical History: GERD/Reflux Additional Past Medical History / Comment(s): ulcerative colitis, reynauds syndrome History of Any Multi-Drug Resistant Organisms: None Reported Past Surgical History: No Surgical Hx Reported Additional Past Surgical History / Comment(s): wisdom teeth removed Past Anesthesia/Blood Transfusion Reactions: No Reported Reaction Past Psychological History: Depression Additional Psychological History / Comment(s): impulsive expulsive disorder, manic depressive disorder - new diagnosis' this year may 2019 Smoking Status: Current every day smoker Past Alcohol Use History: Occasional Past Drug Use History: Cocaine, Marijuana Medications and Allergies Home Medications Medication Instructions Recorded Confirmed Type No Known Home Medications 12/24/19 12/24/19 History Allergies Allergy/AdvReac Type Severity Reaction Status Date / Time No Known Allergies Allergy Verified 12/24/19 08:03 Physical Exam Vitals: Vital Signs Temp Pulse Pulse Resp BP BP Pulse Ox 12/24/19 07:49 82 16 12/24/19 07:45 97.7 F 82 16 106/66 100 12/24/19 03:00 97.9 F 91 16 128/86 100 12/24/19 02:51 98.5 F 98 16 127/74 100 12/24/19 02:00 88 16 12/24/19 01:00 90 16 12/24/19 00:39 98.5 F 119 H 20 136/90 100 Intake and Output 12/23/19 12/24/19 12/24/19 22:59 06:59 14:59 Intake Total 300 Balance 300 Intake: Intake, IV Titration 300 Amount Sodium Chloride 0.9% 1, 300 000 ml @ 100 mls/hr IV . Q10H ONE Rx#:[id number] Other: Voiding Method Toilet Toilet # Voids 1 1 Weight 83.915 kg PHYSICAL EXAMINATION: GENERAL: The patient is alert and oriented x3, not in any acute distress. Well developed, well nourished. HEENT: Pupils are round and equally reacting to light. EOMI. No scleral icterus. No conjunctival pallor. Normocephalic, atraumatic. No pharyngeal erythema. No thyromegaly. CARDIOVASCULAR: S1 and S2 present. No murmurs, rubs, or gallops. PULMONARY: Chest is clear to auscultation, no wheezing or crackles. ABDOMEN: Soft, nontender, nondistended, normoactive bowel sounds. No palpable organomegaly. MUSCULOSKELETAL: No joint swelling or deformity. EXTREMITIES: No cyanosis, clubbing, or pedal edema. NEUROLOGICAL: Gross neurological examination did not reveal any focal deficits. SKIN: No rashes. Results CBC & Chem 7: 12/24/19 08:36 12/24/19 01:08 Labs: Abnormal Lab Results - Last 24 Hours (Table) 12/24/19 Range/Units 01:08 Ammonia 40 H (<30) umol/L Thrombosis Risk Factor Assmnt - Choose All That Apply Any of the Below Risk Factors Present?: No Other Risk Factors: No Other congenital or acquired thrombophilia - If yes, enter type in comment: No Thrombosis Risk Factor Assessment Level: Very Low Risk Assessment and Plan Plan: Bright red blood per rectum: Possible lower GI bleed, Hemoglobin is stable, gastroenterology was consulted will monitor for any more episodes of GI bleed. Depending on any further episodes patient may need inpatient or outpatient colonoscopy. -Gastroesophageal reflux disease -Nicotine abuse: Counseling was provided
[2019-12-24] MEDS ORDERED: PEG 3350-NA SULF,BICARB,CL/KCL 4,000 ML BOTTLE PO ONE (13:49)
--- NOTE | 2019-12-25 00:40 | CONS ---
CONSULTATION DATE OF DICTATION: 12/24/2019 REASON FOR CONSULTATION: Rectal bleeding. HISTORY OF PRESENT ILLNESS: The patient is a 24-year-old pleasant white male admitted to the hospital with multiple episodes of rectal bleeding for the last 3 days duration. He has been having 3 to 4 episodes of bright red blood per rectum everyday. He came to the emergency room 2 days ago and he was discharged home. He started having more bleeding yesterday and hence he came into the emergency room and subsequently admitted to the hospital for further evaluation. His hemoglobin remains stable at 14 g/dL. On further questioning, the patient states that he has been having intermittent rectal bleeding for the last several years duration. It usually happens once or twice a month and initially resolved. Never had this intense in the past. He denies any rectal pain. He does complain of some cramping lower abdominal pain. No diarrhea. No family history of colorectal neoplasia. PAST MEDICAL HISTORY: Anxiety. PAST SURGICAL HISTORY: Unremarkable. MEDICATIONS AT HOME: None. ALLERGIES: No known drug allergies. SOCIAL HISTORY: Chronic smoker, occasional alcohol use. FAMILY HISTORY: Unremarkable. REVIEW OF SYSTEMS: CARDIOPULMONARY: No chest pain, no shortness of breath. GENITOURINARY: No dysuria or hematuria. MUSCULOSKELETAL: Unremarkable. SKIN: Unremarkable. ENDOCRINE: Unremarkable. PSYCHIATRIC: Unremarkable. ENT/VISION: Unremarkable. CONSTITUTIONAL: No recent weight loss. No fever, chills, night sweats. PHYSICAL EXAMINATION: He appears comfortable. No apparent distress. Vital signs are stable. Blood pressure 108/53, pulse rate 69, temperature 97.3. HEENT EXAMINATION: Unremarkable. Conjunctivae pink. Sclerae anicteric. Oral cavity, no lesions. NECK: No JVD or lymph node enlargement. CHEST: Clear to auscultation. HEART: Regular rate and rhythm. ABDOMEN: Soft. Bowel sounds are positive. No organomegaly. EXTREMITIES: No pedal edema. SKIN: No rashes. NEUROLOGIC: Alert and oriented x3. No focal deficits. LABS: WBC 9, hemoglobin 15, platelets 215. Today hemoglobin is 13.8. PT, INR is within normal limits. Basic metabolic panel is within normal limits. IMPRESSION: Intermittent rectal bleeding on and off for the last 13 years duration. For the last few days has been having significant bleeding with clots. Denies any change in bowel habits. No associated rectal pain. Questionable history of colitis in the past. The patient states that he never had a colonoscopy before. No family history of colorectal neoplasia. His hemoglobin has been stable, last hemoglobin was 14.5 g/dL. RECOMMENDATIONS: Proceed with colonoscopy tomorrow. I discussed with the patient risks, benefits and complications of the procedure and he is agreeable to it. In the meantime, we will repeat CBC in the morning. We will follow with you closely. Thank you for this consultation. RASHI / JOANNAN: [id number] /
[2019-12-25 07:29] VITALS: BP 120/69; PULSE 65; TEMP 97.7
[2019-12-25] MEDS: PANTOPRAZOLE 40 MG/10 ML VIAL IVP SCH (07:30)
--- NOTE | 2019-12-25 09:39 | P.DS ---
Providers Date of admission: 12/24/19 02:23 Attending physician: Levar Land Consults: 12/24/19 02:23 Consult Physician Routine Consulting Provider: Corwin Martinez Consult Reason/Comments: gib Do you want consulting provider notified?: Yes Primary care physician: Luigi Conklin [facility] Course: 24-year-old male came in with complaints of bright red blood per rectum going on for about 3 days about 3 episodes of blood in the stools every day. Patient had a rectal exam in ER and didn't find any hemorrhoids. Patient hemoglobin is fairly stable at this time patient had similar episodes when he was 11 years old patient denied any abdominal pain denied nausea vomiting fever chills patient didn't have any episodes of blood in the stools since admission. 12/25/2019 Patient is a scheduled for colonoscopy but unable to get it because of prep issues. Patient although did not have any GI bleed did not have a bowel movement since admission. Patient will be discharged today if cleared by gastroenterology to get an outpatient colonoscopy. Patient CBC is pending PHYSICAL EXAMINATION: GENERAL: The patient is alert and oriented x3, not in any acute distress. Well developed, well nourished. HEENT: Pupils are round and equally reacting to light. EOMI. No scleral icterus. No conjunctival pallor. Normocephalic, atraumatic. No pharyngeal erythema. No thyromegaly. CARDIOVASCULAR: S1 and S2 present. No murmurs, rubs, or gallops. PULMONARY: Chest is clear to auscultation, no wheezing or crackles. ABDOMEN: Soft, nontender, nondistended, normoactive bowel sounds. No palpable organomegaly. MUSCULOSKELETAL: No joint swelling or deformity. EXTREMITIES: No cyanosis, clubbing, or pedal edema. NEUROLOGICAL: Gross neurological examination did not reveal any focal deficits. SKIN: No rashes. Assessment and Plan Plan: Bright red blood per rectum: Possible lower GI bleed, Hemoglobin is stable, gastroenterology evaluated the patient patient will probably get an outpatient colonoscopy no clinical evidence of GI bleed at this time -Nicotine abuse: Counseling was provided Patient Condition at Discharge: Fair Plan - Discharge Summary New Discharge Prescriptions: No Action No Known Home Medications Discharge Medication List No Known Home Medications 12/24/19 [History] Follow up Appointment(s)/Referral(s): Katerin Meyers MD [Primary Care Provider] - 3 Days (Please call office to make appointment) Rosy Ojeda MD [STAFF PHYSICIAN] - 01/14/20 10:30 am Patient Instructions/Handouts: Gastrointestinal Bleeding (DC) Discharge Disposition: HOME SELF-CARE
--- NOTE | 2019-12-25 12:18 | P.PN ---
Subjective Progress Note Date: 12/25/19 Principal diagnosis: Rectal bleeding Patient was seen and examined at the bedside this morning. The patient was supposed to do a bowel prep for colonoscopy scheduled today as an inpatient. The patient states he was unable to drink the prep and wanted to sleep. He states he does have some mild tenderness in the lower abdomen. He states he has not had any further rectal bleeding, however did not have a bowel movement. He denies any nausea or vomiting. Objective - Vital Signs Vital signs: Vital Signs Temp 97.7 F 12/25/19 07:26 Pulse 65 12/25/19 07:26 Resp 16 12/25/19 07:26 BP 120/69 12/25/19 07:26 Pulse Ox 99 12/25/19 07:26 Intake & Output 12/24/19 12/25/19 12/25/19 18:59 06:59 18:59 Intake Total 400 Balance 400 Intake: Oral 400 Other: Voiding Method Toilet Toilet Toilet # Voids 1 - Exam General appearance: The patient is alert, oriented, in no acute distress. He was asleep but easily arousable. HET: Head is normocephalic and atraumatic. Junk T the pink. Sclera anicteric. Neck: Supple without lymphadenopathy. Trachea midline. Abdomen: Soft, mild tenderness to lower abdomen, nondistended with bowel sounds. No palpable organomegaly or masses. No guarding or rigidity Extremities: Normal skin color and turgor. No pedal edema Neurological: No focal deficits. Alert and oriented 3. - Labs CBC & Chem 7: 12/24/19 08:36 12/24/19 01:08 Assessment and Plan Assessment: Rectal bleeding on and off its 2013. For the last few days he's been having significant bleeding with clots. Denies any change in bowel habits. No associated rectal pain. Questionable history of colitis in the past. Patient states he's never had a colonoscopy before. No family history of colorectal neoplasia. His hemoglobin has been stable, last hemoglobin was 14.5 g/dL. Plan: 1. Patient was to proceed with colonoscopy today, however failed to do bowel prep 2. Repeat CBC 3. Patient to be scheduled for colonoscopy outpatient next week with Dr. Ojeda. 4. Patient may be discharged from a gastroenterology standpoint have medically cleared. The above dictated assessment and findings were discussed with Dr. Giuliano Ojeda. The impression and plan of care have been directed as dictated.
== END 2019-12-25 10:14 | disposition home or self-care (01) ==
LOC: EC 00:24 → 1SOBS 02:23
PROVIDERS: ADMIT Hospitalist; ATTEND Hospitalist
DX: K92.1 Melena (principal); R10.9 Unspecified abdominal pain; R10.819 Abdominal tenderness, unspecified site; F17.200 Nicotine dependence, unspecified, uncomplicated; K21.9 Gastro-esophageal reflux disease without esophagitis; K51.90 Ulcerative colitis, unspecified, without complications; F31.9 Bipolar disorder, unspecified; F20.9 Schizophrenia, unspecified; I73.00 Raynaud's syndrome without gangrene; F63.81 Intermittent explosive disorder; F41.9 Anxiety disorder, unspecified; Z71.6 Tobacco abuse counseling; Z87.19 Personal history of other diseases of the digestive system; Z98.890 Other specified postprocedural states
CPT/HCPCS: 96361 ×3; 96376 ×2; 96374; 96375; 99285; 36415; 80053; 82140; 83605; 84484; 85025; 85610; 85730; G0378 ×2; J2405; C9113 ×2; J1170

== ENCOUNTER 2020-01-01 09:36 | Day surgery (SDC) | payer OTHER ==
[2019-12-30 17:43] VITALS: BMI 24.4
[~2020-01-01 09:36] MED LIST: LACTATED RINGERS 1,000 ML IV SCH; LIDOCAINE 1% (10MG/ML) FOR IV START INTRADERMA PRN
[2020-01-01 10:45] VITALS: RESP 16; TEMP 98
[2020-01-01] MEDS ORDERED: PROPOFOL 10 MG/ML 20 ML VIAL IV ONE ×2 (11:29)
--- NOTE | 2020-01-01 11:46 | P.PCN ---
Date of Procedure: 01/01/20 Procedure(s) Performed: BRIEF HISTORY: Patient is a 24-year-old pleasant white male scheduled for an elective colonoscopy as a part of evaluation of intermittent rectal bleeding for the last few years duration PROCEDURE PERFORMED: Colonoscopy. PREOPERATIVE DIAGNOSIS: Intermittent rectal bleeding. IV sedation per Anesthesia. PROCEDURE: After informed consent was obtained, the patient, was brought into the endoscopy unit. IV sedation was administered by Anesthesia under continuous monitoring. Digital rectal examination was normal. Initially the Olympus CF-160 flexible video colonoscope was then inserted in the rectum, gradually advanced into the cecum without any difficulty. Careful examination was performed as the scope was gradually being withdrawn. Ileocecal valve and the appendiceal orifice were visualized and appeared normal. Prep was excellent. Mucosa of the cecum, ascending colon, transverse colon, descending colon, sigmoid colon, and rectum appeared normal. Retroflexion was performed in the rectum and no lesions were seen. The patient tolerated the procedure well. IMPRESSION: Normal-appearing colon from rectum to cecum with no evidence of colitis or colorectal neoplasia . RECOMMENDATIONS: Findings of this examination were discussed with the patient as well as his family. He was advised to be a high-fiber diet and take fiber supplements a regular basis and avoid straining and constipation.
[2020-01-01 11:59] VITALS: BP 117/69; PULSE 67
== END 2020-01-01 12:15 | disposition home or self-care (01) ==
LOC: ORWHC2ENDO 09:36
PROVIDERS: ATTEND Internal Medicine Gastroenterology
DX: K62.5 Hemorrhage of anus and rectum (principal); F17.200 Nicotine dependence, unspecified, uncomplicated; Z98.890 Other specified postprocedural states
CPT/HCPCS: 45378; J2704